=== PATIENT | female | born 1985 | race American Indian/Alaskan Native ===

== ENCOUNTER 2021-01-24 15:57 | Emergency (ER) | payer SELFPAY ==
[2021-01-24 16:41] VITALS: BP 121/54
--- NOTE | 2021-01-24 17:14 | Emergency Department Report ---
- General Chief complaint: Earache Stated complaint: EAR ACHE Time Seen by Provider: 01/24/21 17:09 Source: patient Mode of arrival: Ambulatory Limitations: No Limitations - History of Present Illness Initial comments: The patient was evaluated in the emergency department for symptoms described in the history of present illness. He/she was evaluated in the context of the global COVID-19 pandemic, which necessitated consideration that the patient might be at risk for infection with the virus that causes COVID-19. Institutional protocols and algorithms that pertain to the evaluation of patients at risk for COVID-19 are in a state of rapid change based on information released by regulatory bodies including the CDC and federal and state organizations. These policies and algorithms were followed during the patient's care in the emergency department. Please note that these policies, procedures and recommendations changed on a rapid basis. 36-year-old -Italian female presents to the emergency room for 3-day history of swelling to the right side of her ear her gland. Patient denies any fevers denies any chills states that the area feels tight. She has had no nausea no vomiting. She denies any past medical history takes no medications on a daily basis and has no known drug allergies. Patient does have a primary care provider at [facility] with Dr. Brown. SANTORO complaint: abscess/boil Onset/Timin -: days(s) Tetanus Up to Date: yes Location: face (Preauricular area) Severity: moderate Severity scale (0 -10): 6 Quality: aching, sharp Consistency: constant Improves with: none Worsens with: palpation Context: none Associated symptoms: denies other symptoms Treatments Prior to Arrival: none - Related Data Previous Rx's Medication Instructions Recorded Last Taken Type Ibuprofen [Motrin 800 MG tab] 800 mg PO Q8HR PRN #21 tablet 01/24/21 Unknown Rx cephALEXin [Keflex] 500 mg PO Q8HR #30 cap 01/24/21 Unknown Rx Allergies Allergy/AdvReac Type Severity Reaction Status Date / Time No Known Allergies Allergy Unverified 01/24/21 16:40 Abscess Boil HPI - HPI Chief Complaint: Earache Stated Complaint: EAR ACHE Time Seen by Provider: 01/24/21 17:09 Home Medications: Previous Rx's Medication Instructions Recorded Last Taken Type Ibuprofen [Motrin 800 MG tab] 800 mg PO Q8HR PRN #21 tablet 01/24/21 Unknown Rx cephALEXin [Keflex] 500 mg PO Q8HR #30 cap 01/24/21 Unknown Rx Allergies/Adverse Reactions: Allergies Allergy/AdvReac Type Severity Reaction Status Date / Time No Known Allergies Allergy Unverified 01/24/21 16:40 ED Review of Systems ROS: Stated complaint: EAR ACHE Other details as noted in HPI Comment: All other systems reviewed and negative ED Past Medical Hx - Medications Home Medications: Home Medications Medication Instructions Recorded Confirmed Last Taken Type Ibuprofen [Motrin 800 MG tab] 800 mg PO Q8HR PRN #21 tablet 01/24/21 Unknown Rx cephALEXin [Keflex] 500 mg PO Q8HR #30 cap 01/24/21 Unknown Rx ED Physical Exam - General Limitations: No Limitations General appearance: alert, in no apparent distress - Head Head exam: Present: atraumatic, normocephalic - Eye Eye exam: Present: normal appearance - ENT ENT exam: Present: mucous membranes moist, normal external ear exam, other (Preauricular swelling tenderness and open sinus tract) - Neck Neck exam: Present: normal inspection - Respiratory Respiratory exam: Absent: respiratory distress, accessory muscle use - Cardiovascular Cardiovascular Exam: Present: regular rate. Absent: systolic murmur, diastolic murmur, rubs, gallop - GI/Abdominal GI/Abdominal exam: Present: soft - Extremities Exam Extremities exam: Present: normal inspection - Back Exam Back exam: Present: normal inspection - Neurological Exam Neurological exam: Present: alert, oriented X3, normal gait - Psychiatric Psychiatric exam: Present: normal affect, normal mood - Skin Skin exam: Present: warm, dry, intact, normal color. Absent: rash ED Course Vital Signs 01/24/21 15:57 Temperature 98.4 F Pulse Rate 91 H Respiratory 16 Rate Blood Pressure 121/54 [Right] O2 Sat by Pulse 100 Oximetry ED Medical Decision Making - Medical Decision Making 36-year-old -Italian female presents to the emergency room for 3-day history of swelling to the right side of her ear her gland. Patient denies any fevers denies any chills states that the area feels tight. She has had no nausea no vomiting. She denies any past medical history takes no medications on a daily basis and has no known drug allergies. Patient does have a primary care provider at [facility] with Dr. Banuelos. Complete antibiotics as prescribed pain medication as needed. Warm compresses and follow-up with your primary care provider Critical care attestation.: If time is entered above; I have spent that time in minutes in the direct care of this critically ill patient, excluding procedure time. ED Disposition Clinical Impression: Abscess of preauricular sinus Disposition: 01 HOME / SELF CARE / HOMELESS Is pt being admited?: No Does the pt Need Aspirin: No Condition: Stable Instructions: Skin Abscess, [id number] Additional Instructions: Complete antibiotics as prescribed. Pain medication as needed. Increase your fluid intake. Apply warm compresses to the area. Prescriptions: cephALEXin [Keflex] 500 mg PO Q8HR #30 cap Ibuprofen [Motrin 800 MG tab] 800 mg PO Q8HR PRN #21 tablet PRN Reason: Pain , Severe (7-10) Referrals: [facility] [Other] - 3-5 Days Forms: Work/School Release Form(ED) Time of Disposition: 17:14
== END 2021-01-24 17:20 | disposition home or self-care (01) ==
LOC: ED 15:57
DX: Q18.1 Preauricular sinus and cyst (principal)
CPT/HCPCS: 99282

== ENCOUNTER 2021-10-03 15:23 | Emergency (ER) | payer OTHER ==
[2021-10-03 15:44] VITALS: BP 158/96
== END 2021-10-03 19:30 | disposition left against medical advice (07) ==
LOC: ED 15:23
DX: R06.02 Shortness of breath (principal); Z53.21 Procedure and treatment not carried out due to patient leaving prior to being seen by health care provider

== ENCOUNTER 2021-10-04 07:17 | Emergency (ER) | payer OTHER ==
[2021-10-04 07:55] VITALS: BP 151/104
[2021-10-04] MEDS ORDERED: KETOROLAC 10 MG TAB PO ONE (10:39)
[2021-10-04] MEDS ORDERED: dexAMETHasone 4 MG/ML VIAL IM ONE (10:40)
[2021-10-04] MEDS ORDERED: AMOXICILLIN/K CLAV 875/125MG TAB PO ONE (10:40)
--- NOTE | 2021-10-04 11:15 | Emergency Department Report ---
ED ENT HPI - General Chief complaint: Skin/Abscess/Foreign Body Stated complaint: RT EAR INFECTION/SOB Time Seen by Provider: 10/04/21 10:20 Source: patient Mode of arrival: Ambulatory Limitations: No Limitations - History of Present Illness Initial comments: 36-year-old black female with no past medical history presents to the emergency department for evaluation of 1 week history of worsening right ear pain and swelling to face and right eye. She states that she has been taking ibuprofen at home without any improvement. She denies fever, nausea, vomiting, but states that she has had an intermittent headache along with some congestion. MD complaint: ear pain (Right side only) -: Gradual, week(s) (1) Location: R ear Severity: moderate Severity scale (0 -10): 7 Quality: aching Consistency: constant Associated Symptoms: cough, rhinorrhea. denies: fever, gum swelling, toothache, pain with swallowing, sore throat, tinnitus, hearing loss, discharge from ear - Related Data Previous Rx's Medication Instructions Recorded Last Taken Type Ibuprofen [Motrin 800 MG tab] 800 mg PO Q8HR PRN #21 tablet 01/24/21 Unknown Rx cephALEXin [Keflex] 500 mg PO Q8HR #30 cap 01/24/21 Unknown Rx Amoxicillin/K Clav Tab [Augmentin 1 tab PO BID 7 Days #14 tab 10/04/21 Unknown Rx 875 mg] methylPREDNISolone [Medrol 4MG 4 mg PO DAILY #1 pack 10/04/21 Unknown Rx DOSEPAK (21 tabs)] Allergies Allergy/AdvReac Type Severity Reaction Status Date / Time No Known Allergies Allergy Verified 10/03/21 15:44 ED Dental HPI - General Chief complaint: Skin/Abscess/Foreign Body Stated complaint: RT EAR INFECTION/SOB Time Seen by Provider: 10/04/21 10:20 Source: patient Mode of arrival: Ambulatory Limitations: No Limitations - Related Data Previous Rx's Medication Instructions Recorded Last Taken Type Ibuprofen [Motrin 800 MG tab] 800 mg PO Q8HR PRN #21 tablet 01/24/21 Unknown Rx cephALEXin [Keflex] 500 mg PO Q8HR #30 cap 01/24/21 Unknown Rx Amoxicillin/K Clav Tab [Augmentin 1 tab PO BID 7 Days #14 tab 10/04/21 Unknown Rx 875 mg] methylPREDNISolone [Medrol 4MG 4 mg PO DAILY #1 pack 10/04/21 Unknown Rx DOSEPAK (21 tabs)] Allergies Allergy/AdvReac Type Severity Reaction Status Date / Time No Known Allergies Allergy Verified 10/03/21 15:44 ED Review of Systems ROS: Stated complaint: RT EAR INFECTION/SOB Other details as noted in HPI Comment: All other systems reviewed and negative Constitutional: denies: chills, fever, malaise, weakness Eyes: denies: eye pain, eye discharge, vision change ENT: ear pain, congestion. denies: throat pain, dental pain, hearing loss Respiratory: cough, shortness of breath. denies: SOB with exertion, SOB at rest, stridor, wheezing Cardiovascular: denies: chest pain, palpitations Gastrointestinal: denies: abdominal pain, nausea, vomiting Musculoskeletal: denies: back pain Neurological: headache. denies: weakness ED Past Medical Hx - Past Medical History Previous Medical History?: No - Surgical History Additional Surgical History: - Medications Home Medications: Home Medications Medication Instructions Recorded Confirmed Last Taken Type Ibuprofen [Motrin 800 MG tab] 800 mg PO Q8HR PRN #21 tablet 01/24/21 Unknown Rx cephALEXin [Keflex] 500 mg PO Q8HR #30 cap 01/24/21 Unknown Rx Amoxicillin/K Clav Tab [Augmentin 1 tab PO BID 7 Days #14 tab 10/04/21 Unknown Rx 875 mg] methylPREDNISolone [Medrol 4MG 4 mg PO DAILY #1 pack 10/04/21 Unknown Rx DOSEPAK (21 tabs)] ED Physical Exam - General Limitations: No Limitations General appearance: alert, in no apparent distress - Head Head exam: Present: atraumatic, normocephalic - Eye Eye exam: Present: normal appearance, periorbital swelling (Right only). Absent: conjunctival injection, periorbital tenderness - ENT ENT exam: Present: TM's normal bilaterally, normal external ear exam. Absent: normal exam (Nasal mucosal edema noted to right side only along with tenderness to right maxillary and frontal sinus areas.), normal orophraynx (Erythema noted to posterior oropharynx) - Expanded ENT Exam Expanded Ear exam: Absent: normal external inspection (Noted to have some swelling to the above right. Area towards), auricular hematoma, auricular trauma Teeth exam: Present: normal inspection - Neck Neck exam: Present: normal inspection, tenderness (Right side only), full ROM, lymphadenopathy (Right side only). Absent: meningismus, thyromegaly - Respiratory Respiratory exam: Present: normal lung sounds bilaterally. Absent: respiratory distress, wheezes, rales, rhonchi, stridor, chest wall tenderness - Cardiovascular Cardiovascular Exam: Present: regular rate, normal heart sounds - GI/Abdominal GI/Abdominal exam: Present: soft, normal bowel sounds. Absent: distended, tenderness, guarding, rebound, rigid - Extremities Exam Extremities exam: Present: normal inspection, normal capillary refill - Back Exam Back exam: Present: normal inspection - Neurological Exam Neurological exam: Present: alert, oriented X3, CN II-XII intact, normal gait - Psychiatric Psychiatric exam: Present: normal affect, normal mood - Skin Skin exam: Present: warm, dry, intact, normal color ED Course Vital Signs 10/04/21 07:48 Temperature 98 F Pulse Rate 95 H Respiratory 18 Rate Blood Pressure 151/104 [Left] O2 Sat by Pulse 99 Oximetry ED Medical Decision Making - Medical Decision Making 36-year-old black female with no past medical history presents to the emergency department for evaluation of 1 week history of worsening right ear pain and swelling to face and right eye. She states that she has been taking ibuprofen at home without any improvement. She denies fever, nausea, vomiting, but states that she has had an intermittent headache along with some congestion. Symptoms and exam most consistent with acute bacterial rhino sinusitis affecting right side only. Patient treated with one-time dose of Decadron 8 mg IM, Toradol 10 mg p.o., and Augmentin while in the emergency department and will be discharged home with 7-day course of Augmentin along with Medrol Dosepak. She is advised to follow-up with her primary care provider or ENT for further evaluation or worsening symptoms. She is advised to return to the emergency department as needed. She verbalizes understanding of and agreement with plan of care. Critical care attestation.: If time is entered above; I have spent that time in minutes in the direct care of this critically ill patient, excluding procedure time. ED Disposition Clinical Impression: Acute bacterial rhinosinusitis Disposition: HOME / SELF CARE / HOMELESS Is pt being admited?: No Does the pt Need Aspirin: No Condition: Stable Instructions: Antibiotic Medicine, Adult, [id number], Sinusitis, Adult, [id number] Additional Instructions: Take medication as prescribed. Follow-up with your primary care provider or your ENT doctor for further evaluation and management. Return to the emergency department as needed. Prescriptions: Amoxicillin/K Clav Tab [Augmentin 875 mg] 1 tab PO BID 7 Days #14 tab methylPREDNISolone [Medrol 4MG DOSEPAK (21 tabs)] 4 mg PO DAILY #1 pack Referrals: JESSE DIAS MD [Staff Physician] - 3-5 Days ROMAINE SUAZO MD [Referring] - 3-5 Days Time of Disposition: 11:15
== END 2021-10-04 11:24 | disposition home or self-care (01) ==
LOC: ED 07:17
DX: J01.80 Other acute sinusitis (principal); B96.89 Other specified bacterial agents as the cause of diseases classified elsewhere; Z98.890 Other specified postprocedural states; Z79.899 Other long term (current) drug therapy
CPT/HCPCS: 96372; 99282; J1100